=== PATIENT | female | born 1955 | race Caucasian/White ===

== ENCOUNTER 2020-08-09 19:44 | Emergency (ER) | payer OTHER ==
[~2020-08-09] VITALS: Ht 157.5 cm; Wt 52.6 kg
[2020-08-09] MEDS ORDERED: ACYCLOVIR800 MG PO (20:05)
[2020-08-09] MEDS ORDERED: IVERMECTIN3 MG PO (21:01)
[2020-08-09] MEDS ORDERED: PERMETHRIN60 GM TOP (21:01)
== END 2020-08-09 21:50 | disposition home or self-care (01) ==
LOC: ER 19:44
DX: B86 Scabies (principal); Z03.818 Encounter for observation for suspected exposure to other biological agents ruled out

== ENCOUNTER 2020-12-17 14:04 | Outpatient (CLI) | payer OTHER ==
[~2020-12-17 14:04] MED LIST: ACYCLOVIR800 MG PO; IVERMECTIN3 MG PO; PERMETHRIN60 GM TOP
== END 2020-12-17 15:32 | disposition home or self-care (01) ==
LOC: OFIC 805 14:04
PROVIDERS: ATTEND Otolaryngology Otology & Neurotology
DX: H92.02 Otalgia, left ear (principal); H60.392 Other infective otitis externa, left ear; H61.21 Impacted cerumen, right ear

== ENCOUNTER 2024-09-18 07:15 | Emergency (ER) | payer OTHER ==
[~2024-09-18] VITALS: Ht 157.5 cm; Wt 54.0 kg
== END 2024-09-18 10:36 | disposition home or self-care (01) ==
LOC: ER 07:17
DX: J10.1 Influenza due to other identified influenza virus with other respiratory manifestations (principal); Z20.822 Contact with and (suspected) exposure to COVID-19; Z88.5 Allergy status to narcotic agent